=== PATIENT | male | born 1995 | race African-American/Black ===

== ENCOUNTER → 2021-04-15 10:27 | Outpatient (CLI) | payer OTHER, SELFPAY ==
[2021-04-15 12:32] LABS: COVID19 -Nasal RAPID Negative (Negative)
== END ==
PROVIDERS: Visit Provider Nurse Practitioner Family
DX: Z20.822 Contact with and (suspected) exposure to COVID-19 (principal)
CPT/HCPCS: 87635

== ENCOUNTER → 2021-04-17 13:42 | Outpatient (CLI) | payer OTHER, SELFPAY ==
--- NOTE | 2021-04-17 13:45 | DI.ECHO.S_ITS ---
[facility] +---------+ : : [address] : : : : [id number] : : : : Phone: [phone]---------+ Echocardiogram Report + + :Name: JULIO ZAMUDIO Study Date: 04/17/2021 Height: 72 in : :[facility] ReadingLocation: Weight: 190 lb : : Gender: Male BSA: 2.1 m2 : :: 1995 Age: 25 yrs BP: 130/67 mmHg: :Reason For Study: Chest pain : : Performed By: Dixon Davenport : :Referring: KAITY HEAD E : + + Interpretation Summary Question possible pleural effusion in apical window? The ejection fraction is estimated to be 60-65%. Diastolic parameters suggest probable normal left ventricular diastolic function and normal filling pressures. The right ventricular systolic function is normal. No significant valvular abnormalities. Unable to estimate PASP. Procedure: A two-dimensional transthoracic echocardiogram with color flow and Doppler was performed. The study quality was technically adequate. Fair apical window. There is no prior echocardiogram noted for this patient. The patient was in normal sinus rhythm during the exam. Left Ventricle: The left ventricle is normal in size. There is mild asymmetric left ventricular hypertrophy. The ejection fraction is estimated to be 60-65%. Diastolic parameters suggest probable normal left ventricular diastolic function and normal filling pressures. Right Ventricle: The right ventricle is normal size. The right ventricular systolic function is normal. Atria: The left atrial size is normal. The right atrium is mildly dilated. There is no Doppler evidence for an interatrial shunt. Mitral Valve: The mitral valve leaflets appear borderline thickened, but open well. There is trace mitral regurgitation. Aortic Valve: The aortic valve is trileaflet. The aortic valve opens well. There is trace aortic regurgitation. Tricuspid Valve: The tricuspid valve is normal. There is trace tricuspid regurgitation. Pulmonary artery pressures cannot be estimated because of the lack of a measurable TR jet velocity. Pulmonic Valve: The pulmonic valve leaflets are thin and pliable; valve motion is normal. There is trace pulmonic regurgitation. Great Vessels: The aortic root is normal size. The ascending aorta is normal in size. The aortic arch is normal in size. The IVC is of normal diameter and collapses greater than 50% with a sniff. This suggests a low right atrial pressure of 3 mm Hg. Pericardium/ Pleura There is no pericardial effusion. There is no pleural effusion. MMode/2D Measurements & Calculations LVIDd: 4.3 cm LVOT diam: 1.9 cm LVIDs: 3.1 cm Ao root diam: 2.6 cm FS: 29.3 % asc Aorta Diam: 2.7 cm IVSd: 0.84 cm Ao Arch Diam (Prox Trans): 1.9 cm LVPWd: 1.3 cm LV lforian. diameter/BSA (cm/m^2): 2.1 LV sys. diameter/BSA (cm/m^2): 1.5 LA A2 area: 14.3 cm2 RA long axis: 5.2 cm LA A4 area: 16.8 cm2 RA area: 18.8 cm2 LA length (vol): 4.5 cm RA vol: 57.3 ml LA vol: 45.0 ml RA : 27.5 ml/m2 LA vol index: 21.6 ml/m2 IVC diam: 2.1 cm TAPSE: 2.7 cm Doppler Measurements & Calculations Ao V2 max: 162.1 cm/sec LVOT Max Subhash: 106.4 cm/sec Ao V2 mean: 110.6 cm/sec LV V1 max P.5 mmHg Ao max P.5 mmHg LV V1 VTI: 22.2 cm Ao mean P.4 mmHg ZOHRA(I,D): 2.2 cm2 Ao V2 VTI: 29.1 cm ZOHRA(V,D): 1.9 cm2 sev ratio: 0.76 ZOHRA indexed to BSA (cm^2/m^2): 1.0 MV E max subhash: 92.7 cm/sec TR max subhash: 196.4 cm/sec MV A max subhash: 64.5 cm/sec TR max P.4 mmHg MV E/A: 1.4 PA V2 max: 83.3 cm/sec Med Peak E' Subhash: 14.7 cm/sec PA V2 mean: 59.3 cm/sec E/E' med: 6.3 PA mean P.5 mmHg Lat Peak E' Subhash: 15.2 cm/sec PA pr(Accel): 27.6 mmHg E/E' lat: 6.1 E/e' average: 6.2 MV dec time: 0.21 sec SV(LVOT): 63.1 ml Reading Physician:03:05 PM
--- NOTE | 2021-04-17 18:18 | DI.NM.S_ITS ---
DATE OF SERVICE: 04/17/2021 PROCEDURE PERFORMED: Exercise treadmill stress test without imaging. ORDERING PROVIDER: Dr. Kaity Head. INDICATIONS: The patient is a 25-year-old female with atypical chest pain. FINDINGS: 1. The patient was able to exercise for 12 minutes on a standard Dick protocol suggesting mild to moderately reduced exercise capacity with an GAVIN of +17%, achieving 12.8 METs. 2. She had a normal heart rate response to exercise, achieving a maximum heart rate of 181 BPM (93% of her predicted maximum). She had a mild hypertensive blood pressure response with a resting blood pressure of 140/78 increasing to a maximum of 220/60 at peak exercise. 3. She had no chest pain or other anginal discomfort with exercise. 4. Her resting ECG appears normal with normal ST segments. With exercise, there are no significant ST-segment shifts or arrhythmias. IMPRESSION: 1. Normal exercise treadmill stress test for ischemia. 2. Mild to moderately reduced exercise capacity without angina or arrhythmia, but with a moderate hypertensive blood pressure response to exercise. Abbe Liang - MARGUERITE/kim/tricia doc#: [id number]/job#: [id number] dd: 04/17/2021 17:24:00 dt: 04/17/2021 17:56:00 DICTATING MD/COPIES TO: Nasir Blake MD; Kaity Head M.D. COPIES MNE: YAZAN;
== END ==
PROVIDERS: Referring Provider Internal Medicine Cardiovascular Disease; Visit Provider Internal Medicine Cardiovascular Disease
DX: R07.89 Other chest pain (principal)
CPT/HCPCS: 93017; 93306

== ENCOUNTER → 2022-01-25 14:37 | Outpatient (CLI) | payer OTHER, SELFPAY ==
--- NOTE | 2022-01-25 | DI.MRI.S_ITS ---
PROCEDURE: MR HAND LT WO CON INDICATIONS: Pain in left finger(s) TECHNIQUE: Noncontrast coronal T1 spin echo and T2 fast spin echo with fat saturation, axial proton density fast spin echo and T2 fast spin echo with fat saturation, sagittal T1 spin echo and STIR through the hand and fingers. COMPARISON: None. FINDINGS: Image quality: Excellent. Bones: The bones are normally aligned. No fracture or dislocation. Mild edema involving 5th proximal phalangeal head and neck is seen without discrete fracture line. No other area of abnormal marrow signal. No intra-osseous lesions. Interphalangeal joint(s): Markedly attenuated radial collateral ligament of 5th proximal interphalangeal joint is seen near its proximal insertion with adjacent soft tissue edema. The ulnar collateral ligaments are grossly intact. The volar plate demonstrates normal morphology. The extensor central slips appear intact on sagittal images. Metacarpophalangeal joint(s): The accessory and proper collateral ligaments appear intact, as well as the volar plate and adjacent deep transverse metacarpal ligaments. The sagittal bands of the extensor manuel appear normal. Extensor apparatus: The central slips insert normally on the middle phalangeal base. The conjoint and terminal tendons insert normally on the distal phalangeal bases. More proximal portions of the extensor tendons also appear normal. Flexor apparatus: Mildly thickened flexor digitorum superficialis and profundus tendons at the level of 5th PIP joint is seen. There is suggestion of ruptured A2 damian of 5th digit with fluid extending between 5th digit flexor tendon and 5th proximal phalangeal shaft. Soft tissues: Visualized muscles demonstrate normal bulk and internal signal. No intramuscular masses identified. No ganglion cysts. IMPRESSION: 1. Suggestion of bony contusion involving 5th proximal phalangeal head and neck with surrounding soft tissue edema and swelling. 2. Moderate to high-grade partial-thickness tear involving proximal portion of radial collateral ligaments of the 5th PIP joint. 3. Thickened flexor tendons of 5th digit at the level of 5th PIP joint and 5th proximal phalangeal shaft with suggestion of ruptured A2 damian of 5th digit. Dictated by: Alex Ochoa M.D. on 01/26/2022 at 9:18 Approved by: Alex Ochoa M.D. on 01/26/2022 at 9:49
== END ==
PROVIDERS: Referring Provider Physician Assistant; Visit Provider Physician Assistant
DX: S63.637A Sprain of interphalangeal joint of left little finger, initial encounter (principal); M79.645 Pain in left finger(s)
CPT/HCPCS: 73218